=== PATIENT | female | born 1995 | race Hispanic/Latino ===

== ENCOUNTER 2020-02-06 21:10 | Inpatient (IN) | payer OTHER ==
--- OUTSIDE RECORDS SUMMARY | 2020-02-06 21:11 | XMS REPORT ---
:1995 Author Organization [facility] t Address [address] [place] [address] Care Team Providers Name Role Phone Unavailable Unavailable Unavailable Problems This patient has no known problems. Allergies, Adverse Reactions, Alerts This patient has no known allergies or adverse reactions. Medications This patient has no known medications.
[2020-02-06] MEDS ORDERED: FAMOTIDINE 20 MG/2 ML VIAL IV ONE (21:57)
[2020-02-06] MEDS ORDERED: MORPHINE 4 MG/ML SYR ONE (21:57)
[2020-02-06] MEDS ORDERED: ONDANSETRON 4 MG/2 ML VIAL ONE (21:57)
[2020-02-06] MEDS ORDERED: NA CHLORIDE 0.9% 1,000 ML ONE (21:57)
[2020-02-06] MEDS ORDERED: METOCLOPRAMIDE 10 MG/2mL INJ ONE (22:49)
[2020-02-06 23:54] LABS: Absolute Lymphocytes (CBC) 1.2 K/uL (0.7-4.9); Basophils % 0.5 % (0-1.3); Hematocrit 37.6 % (36.0-45.0); Lymphocytes % 9.3 % (15.3-44.8); MPV 9.4 fL (7.6-11.3); RBC Red Blood Cell Count 4.35 M/uL (3.86-4.86)
[2020-02-07 00:44] LABS: ALT/SGPT 29 U/L (12-78); AST/SGOT 19 U/L (15-37); Albumin 3.9 g/dL (3.4-5.0); Alkaline Phosphatase 97 U/L (45-117); BUN Blood Urea Nitrogen 12 mg/dL (7-18); Bicarbonate 26 mmol/L (21-32); Bilirubin Direct < 0.1 mg/dL (0-0.2); Bilirubin Total 0.3 mg/dL (0.2-1.0); Glucose Level 101 mg/dL (74-106); Lipase 84 U/L (73-393); Potassium 3.7 mmol/L (3.5-5.1); Protein, Total 7.8 g/dL (6.4-8.2); Sodium Level 140 mmol/L (136-145)
[2020-02-07 01:21] LABS: Urine Blood NEGATIVE (NEG); Urine Glucose NEGATIVE (NEG); Urine Protein 1+ (NEG); Urine pH 8.5 (5.0-7.0)
[2020-02-07 01:24] LABS: Urine Amorphous Sediment 1+ /HPF (NONE SEEN); Urine Bacteria 20-50 /HPF (<20); Urine Culture Reflex Order REFLEXED; Urine Mucus 2+ /HPF (NONE SEEN); Urine RBC <5 /HPF (NONE SEEN)
--- NOTE | 2020-02-07 04:08 | EDPHYS ---
Physician Documentation [facility] Name: Hollie Aiken Age: 24 yrs Sex: Female : 1995 Arrival Date: 02/06/2020 Time: 21:13 Bed 23 Private MD: ED Physician Dre Pinto HPI: 02/05 21:51 This 24 yrs old Female presents to ER via Ambulatory with complaints of mh7 Abdominal Pain, Vomiting. 21:51 The patient presents to the emergency department with nausea, that is moderate, mh7 vomiting, that is intermittent, 3 times since yesterday, described as clear fluid, diarrhea, abdominal pain, of the epigastric area and right upper quadrant, described as achy, constant, sharp, and radiates to the back. Onset: The symptoms/episode began/occurred yesterday. Possible causes: unknown. The symptoms are aggravated by food , The symptoms are alleviated by nothing. Associated signs and symptoms: Pertinent positives: abdominal pain, nausea, vomiting, Pertinent negatives: anorexia, diarrhea, dysuria, fever, GI bleeding, hematuria. Severity of symptoms: At their worst the symptoms were moderate today, in the emergency department the symptoms are unchanged. The patient has not experienced similar symptoms in the past. Historical: - Allergies: 21:21 No Known Allergies; ll1 - PSHx: 21:21 ; ll1 - Social history:: Smoking status: Patient denies any tobacco usage or history of. Patient/guardian denies using alcohol, street drugs, tobacco products. ROS: 21:55 Constitutional: Negative for body aches, chills, fatigue, fever, malaise, poor PO mh7 intake, weight loss. 21:55 Eyes: Negative for acute changes. 21:55 ENT: Negative for ear pain, nasal discharge, rhinorrhea, sinus congestion, sinus pain, sore throat, difficulty swallowing. 21:55 Neck: Negative for stiffness, swelling, swollen nodes, tenderness, acute changes. 21:55 Cardiovascular: Negative for chest pain, edema, orthopnea, palpitations, paroxysmal nocturnal dyspnea, acute changes. 21:55 Respiratory: Negative for cough, dyspnea on exertion, hemoptysis, orthopnea, pleurisy, shortness of breath, sputum production, wheezing, acute changes. 21:55 Abdomen/GI: Positive for abdominal pain, nausea and vomiting, Negative for abdominal distension, anorexia, dysphagia, hematemesis, black/tarry stool, rectal pain, rectal bleeding, bowel incontinence. 21:55 Back: Positive for radiated pain, Negative for injury or acute deformity, decreased range of motion. 21:55 : Negative for injury or acute deformity, urinary symptoms, urinary frequency, hematuria, pelvic pain, burning with urination, vaginal discharge, vaginal itching, menstrual abnormality, missed period, acute changes. 21:55 MS/extremity: Negative for acute changes, injury or acute deformity, abrasion, contusion, decreased range of motion, ecchymosis, erythema, pain, paresthesias, swelling, tenderness. 21:55 Skin: Negative for abrasions, abscesses, avulsion, burn, cellulitis, diaphoresis, ecchymosis, erythema, hematoma, jaundice, lesions, swelling. 21:55 Neuro: Negative for altered mental status, dizziness, gait disturbance, headache, hearing loss, loss of consciousness, numbness, syncope, tingling, visual changes, weakness. 21:55 Psych: Negative for anxiety, depression, drug dependence, alcohol dependence, auditory hallucinations, visual hallucinations, homicidal ideation, suicide gesture, suicidal ideation, acute changes. 21:55 Allergy/Immunology: Negative for allergies, hayfever, hives, joint pain, pruritus, rash, acute changes. 21:55 Endocrine: Negative for goiter, cold intolerance, heat intolerance, polydipsia, polyphagia, polyuria, weight gain, weight loss, acute changes. 21:55 Hematologic/Lymphatic: Negative for anemia, abnormal bleeding, swollen nodes, petechiae, ecchymosis, joint pain, tender nodes, acute changes. 21:55 All other systems are negative. 02/06 07:01 Constitutional: Negative for fever, chills, and weight loss, Cardiovascular: Negative mh7 for chest pain, palpitations, and edema, Respiratory: Negative for shortness of breath, cough, wheezing, and pleuritic chest pain. Exam: 02/05 21:55 Constitutional: The patient appears in no acute distress, alert, awake, mh7 non-diaphoretic, non-toxic, well developed, well hydrated, well groomed, well nourished, uncomfortable. Head/face: Exam is negative for obvious evidence of injury or deformity, abrasion(s), contusion, ecchymosis, erythema, swelling, tenderness. Eyes: Periorbital structures: appear normal, Pupils: equal, round, and reactive to light and accomodation, Extraocular movements: intact throughout, Conjunctiva: normal, Sclera: no appreciated abnormality. ENT: Mouth: is normal, no gum abnomalities, no lip abnormalities, no mucosal abnormalities, no tongue abnormalities. Neck: External neck: is normal, C-spine: appears grossly normal, Thyroid: appears normal, Trachea: is midline with no obvious abnormalities, ROM/movement: is normal, Lymph nodes: no appreciated lymphadenopathy. Chest/axilla: Inspection: normal, no cellulitis, no deformity, no ecchymosis, no rash, Palpation: is normal, no crepitus, no tenderness, Axilla: are normal, Lymph nodes: lymphadenopathy is not appreciated. Cardiovascular: Rate: normal, Rhythm: regular, Pulses: no pulse deficits are appreciated, Heart sounds: normal, normal S1and S2, Edema: is not appreciated, JVD: is not appreciated. Respiratory: the patient does not display signs of respiratory distress, Respirations: normal, no prolonged exhalations, no retractions, no shallow respirations, no splinting, no tachypnea, Breath sounds: are clear throughout, no bronchial sounds, no decreased breath sounds, no rales, rhonchi, no stridor, no wheezing, Respiratory rate: Normal Abdomen/GI: Inspection: abdomen appears normal, Bowel sounds: normal, in all quadrants, Palpation: soft, in all quadrants, moderate abdominal tenderness, in the epigastric area and right upper quadrant, mass, is not appreciated, rebound tenderness, is not appreciated, voluntary guarding, is not appreciated, involuntary guarding, is not appreciated, no appreciated organomegaly, Rectal exam: the exam is deferred, because of patient request, Indicators: McBurney's point is not tender, Almendarez's sign is negative, Rovsing's sign is negative, Obturator sign is negative, Psoas sign is negative, Liver: no appreciated palpable abnormalities, Hernia: not appreciated. Back: Exam negative for CVA tenderness, decreased ROM, deformity, ecchymosis injury, muscle spasm, vertebral tenderness, pain, that is mild, ROM is normal, normal spinal alignment noted, no deformity, CVA tenderness, is absent, muscle spasm, is not present. : Exam negative for dysuria, CVA tenderness, bladder tenderness, bladder distension. Musculoskeletal/extremity: Exam is negative for abrasion, bony tenderness, calf tenderness, decreased range of motion, deformity, ecchymosis, edema, erythema, injury, laceration, pain. Skin: Exam negative for abrasion, abscess, obvious bony injury, cellulitis, diaphoresis, ecchymosis, erythema any evidence of obvious injury. Neuro: Orientation: is normal, Mentation: is normal, Memory: is normal, Cranial nerves: grossly normal, Cerebellar function: is grossly normal, Motor: is normal, Sensation: is normal, Gait: is steady, at a normal pace, without difficulty. 02/06 07:01 Constitutional: This is a well developed, well nourished patient who is awake, alert, mh7 and in no acute distress. Cardiovascular: Regular rate and rhythm with a normal S1 and S2. No gallops, murmurs, or rubs. Normal PMI, no JVD. No pulse deficits. Respiratory: Lungs have equal breath sounds bilaterally, clear to auscultation and percussion. No rales, rhonchi or wheezes noted. No increased work of breathing, no retractions or nasal flaring. Vital Signs: 02/05 21:19 BP 137 / 92; Pulse 65; Resp 19; Temp 98.5; Pulse Ox 100% ; Pain 8/10; ll1 22:34 BP 135 / 82; Pulse 96; Resp 16; Pulse Ox 99% on R/A; jb4 23:30 BP 122 / 76; Pulse 75; Resp 18; Pulse Ox 100% on R/A; mw2 02/06 00:43 BP 133 / 74; Pulse 66; Resp 16; Pulse Ox 100% on R/A; mw2 01:00 BP 124 / 76; Pulse 69; Resp 16; Pulse Ox 97% on R/A; mw2 01:15 BP 124 / 72; Pulse 79; Resp 18; Pulse Ox 97% on R/A; mw2 04:20 BP 117 / 66; Pulse 74; Resp 16; Temp 97.2(TE); Pulse Ox 100% on R/A; Pain 0/10; jb4 MDM: 02/05 21:19 Patient medically screened. [facility] 02/06 05:32 Differential diagnosis: Nonspecific abd pain, gastritis, cholecystitis, pancreatitis. [facility] Data reviewed: vital signs, nurses notes, lab test result(s), amylase and lipase, CBC, hepatic panel. Counseling: I had a detailed discussion with the patient and/or guardian regarding: the historical points, exam findings, and any diagnostic results supporting the discharge/admit diagnosis, lab results, radiology results, the need for further work-up and treatment in the hospital. Admission orders: after a detailed discussion of the patient's condition and case, the admit orders are written by me. ED course: Feels better, NAD, VSS. Intermittent abdominal pain but nausea or vomiting. Discussed test results and findings with the patient and need for admission. Discussed with and admitted to Dr. Byers for further care.. 02/05 21:29 Order name: Creatinine for Radiology; Complete Time: 22:44 [facility] 02/05 21:29 Order name: Test, Serum; Complete Time: 22:44 [facility] 02/05 21:29 Order name: Urine Microscopic Only; Complete Time: 03:48 [facility] 02/05 23:10 Order name: Basic Metabolic Panel; Complete Time: 00:45 [facility] 02/05 23:10 Order name: CBC with Diff; Complete Time: 00:45 [facility] 02/05 23:10 Order name: Hepatic Function; Complete Time: 00:45 [facility] 02/05 21:31 Order name: US Abdomen Limited [facility] 02/05 22:55 Order name: CT Abd/Pelvis - IV Contrast Only [facility] 02/05 23:10 Order name: Lipase; Complete Time: 00:45 [facility] 02/06 00:29 Order name: Urine Dipstick--Ancillary (enter results); Complete Time: 03:48 [facility] 02/06 00:29 Order name: Urine --Ancillary (enter results); Complete Time: 03:48 [facility] 02/06 01:26 Order name: Urine Culture [facility] 02/05 21:29 Order name: Labs collected and sent; Complete Time: 22:08 [facility] 02/05 21:29 Order name: Urine Dipstick-Ancillary (obtain specimen); Complete Time: 00:34 [facility] 02/05 23:10 Order name: IV Saline Lock; Complete Time: 00:34 7 Administered Medications: 02/05 22:01 Drug: NS 0.9% 1000 ml Route: IV; Rate: 1 bolus; Site: left antecubital; tl2 23:00 Follow up: Response: No adverse reaction; IV Status: Completed infusion; IV Intake: jb4 1000ml 22:01 Drug: morphine 4 mg Route: IVP; Site: left antecubital; tl2 22:30 Follow up: Response: No adverse reaction; Pain is decreased; RASS: Alert and Calm (0) jb4 22:08 Drug: Zofran (Ondansetron) 4 mg Route: IVP; Site: left antecubital; tl2 22:50 Follow up: Response: No adverse reaction 4 22:08 Drug: Pepcid 20 mg Route: IVP; Site: left antecubital; tl2 22:50 Follow up: Response: No adverse reaction 4 22:45 Drug: Reglan 10 mg Route: IVP; Site: left antecubital; jb4 23:15 Follow up: Response: No adverse reaction; Nausea is decreased [facility] 02/06 05:30 Drug: Zosyn 3.375 grams Route: IVPB; Infused Over: 60 mins; Site: left antecubital; 4 06:30 Follow up: Response: No adverse reaction; IV Status: Completed infusion; IV Intake: jb4 100ml Disposition: 07:01 Co-signature as Attending Physician, Dre Pinto MD. [facility] Disposition: 02/07/20 05:32 Hospitalization ordered by Jorje Byers for Inpatient Admission. Preliminary diagnosis is Acute cholecystitis. - Bed requested for Telemetry/MedSurg (Inpatient). - Status is Inpatient Admission. eb - Condition is Stable. - Problem is new. - Symptoms have improved. Signatures: Dispatcher [employer] EDMA Milly Jon RN RN Tika Tomas RN RN tl2 Robbie Valentino RN RN jb4 Carley Raza Lynsay, RN RN 1 Dre Pinto MD MD 7 Corrections: (The following items were deleted from the chart) 05:16 04:08 02/07/2020 04:08 Patients has left against medical advice. Impression: Upper mh7 abdominal pain, unspecified; Cholelithiasis; Cholecystitis, unspecified - possible. Patient states they are going to Home. Condition is Stable. Follow up: Jorje Byers; When: Tomorrow; Reason: Further diagnostic work-up, Re-evaluation by your physician. Problem is new. Symptoms have improved. [facility] 06:03 05:32 Hospitalization Ordered by Jorje Byers MD for Inpatient Admission. Preliminary mw diagnosis is Acute cholecystitis. Bed requested for Telemetry/MedSurg (Inpatient). Status is Inpatient Admission. Condition is Stable. Problem is new. Symptoms have improved. [facility] 15:28 06:03 02/07/2020 05:32 Hospitalization Ordered by Jorje Byers MD for Inpatient eb Admission. Preliminary diagnosis is Acute cholecystitis. Bed requested for [facility] ER HOLD. Status is Inpatient Admission. Condition is Stable. Problem is new. Symptoms have improved. 18:14 15:28 02/07/2020 05:32 Hospitalization Ordered by Jorje Byers MD for Inpatient eb Admission. Preliminary diagnosis is Acute cholecystitis. Bed requested for Telemetry/MedSurg (Inpatient). Status is Inpatient Admission. Condition is Stable. Problem is new. Symptoms have improved. eb
--- NOTE | 2020-02-07 04:08 | ER ---
Nurse's Notes [facility] Name: Hollie Aiken Age: 24 yrs Sex: Female : 1995 Arrival Date: 02/06/2020 Time: 21:13 Bed 23 Private MD: Diagnosis: Acute cholecystitis Presentation: 02/05 21:19 Chief complaint: Patient states: RUQ abdominal pain that radiates through to the back ll1 for 2 days. + N/V. Coronavirus screen: Proceed with normal triage. Patient reports a cough. Patient denies shortness of breath or difficulty breathing. Patient denies measured and/or subjective temperature greater than 100.4F prior to today's visit. Patient denies travel on a cruise ship or to a country the [facility] currently lists as an affected area. Patient denies contact with known and/or suspected case of COVID-19. cough for 6 months. Ebola Screen: Patient denies travel to an Ebola-affected area in the 21 days before illness onset. Initial Sepsis Screen: Does the patient meet any 2 criteria? No. Patient's initial sepsis screen is negative. Does the patient have a suspected source of infection? No. Patient's initial sepsis screen is negative. Risk Assessment: Do you want to hurt yourself or someone else? Patient reports no desire to harm self or others. Onset of symptoms was February 05, 2020. 21:19 Method Of Arrival: Ambulatory ll1 21:19 Acuity: RAMAKRISHNA 3 ll1 Historical: - Allergies: 21:21 No Known Allergies; ll1 - PSHx: 21:21 ; ll1 - Social history:: Smoking status: Patient denies any tobacco usage or history of. Patient/guardian denies using alcohol, street drugs, tobacco products. Assessment: 21:30 General: Appears in no apparent distress. uncomfortable, Behavior is calm, cooperative, jb4 appropriate for age. Pain: Complains of pain in right upper quadrant Pain radiates to right mid back and chest Pain currently is 8 out of 10 on a pain scale. 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 Neuro: Level of Consciousness is awake, alert, obeys commands, Oriented to person, place, time, situation. Cardiovascular: Patient's skin is warm and dry. Respiratory: Airway is patent Respiratory effort is even, unlabored, Respiratory pattern is regular, symmetrical. GI: Abdomen is non-distended, obese, Bowel sounds present X 4 quads. Abd is soft X 4 quads Abd is non tender in left upper quadrant and left lower quadrant Abdomen is tender to palpation in right upper quadrant and right lower quadrant Reports nausea, vomiting. : No signs and/or symptoms were reported regarding the genitourinary system. EENT: No signs and/or symptoms were reported regarding the EENT system. Derm: Skin is intact, Skin is pink, warm \T\ dry. Musculoskeletal: Circulation, motion, and sensation intact. Range of motion: intact in all extremities. 22:40 Reassessment: Patient appears in no apparent distress at this time. Patient and/or jb4 family updated on plan of care and expected duration. Pain level reassessed. Patient is alert, oriented x 3, equal unlabored respirations, skin warm/dry/pink. PT reports vomiting following a sharp sudden pain to the right upper abdomen. Reports pain is no longer present but is till nauseous. Provider notified, see MAR for orders. 02/06 00:00 Reassessment: Patient appears in no apparent distress at this time. Patient and/or jb4 family updated on plan of care and expected duration. Pain level reassessed. Patient is alert, oriented x 3, equal unlabored respirations, skin warm/dry/pink. Patient states feeling better. 01:00 Reassessment: Patient appears in no apparent distress at this time. Patient and/or jb4 family updated on plan of care and expected duration. Pain level reassessed. Patient is alert, oriented x 3, equal unlabored respirations, skin warm/dry/pink. Patient states feeling better. 02:00 Reassessment: Patient appears in no apparent distress at this time. Patient and/or jb4 family updated on plan of care and expected duration. Pain level reassessed. Patient is alert, oriented x 3, equal unlabored respirations, skin warm/dry/pink. Patient states feeling better. 03:00 Reassessment: Patient appears in no apparent distress at this time. Patient and/or jb4 family updated on plan of care and expected duration. Pain level reassessed. Patient is alert, oriented x 3, equal unlabored respirations, skin warm/dry/pink. Denies nausea. Patient denies pain at this time. Patient states feeling better. 04:00 Reassessment: Patient appears in no apparent distress at this time. No changes from jb4 previously documented assessment. Patient and/or family updated on plan of care and expected duration. Pain level reassessed. Patient is alert, oriented x 3, equal unlabored respirations, skin warm/dry/pink. Vital Signs: 02/05 21:19 BP 137 / 92; Pulse 65; Resp 19; Temp 98.5; Pulse Ox 100% ; Pain 8/10; ll1 22:34 BP 135 / 82; Pulse 96; Resp 16; Pulse Ox 99% on R/A; jb4 23:30 BP 122 / 76; Pulse 75; Resp 18; Pulse Ox 100% on R/A; mw2 02/06 00:43 BP 133 / 74; Pulse 66; Resp 16; Pulse Ox 100% on R/A; mw2 01:00 BP 124 / 76; Pulse 69; Resp 16; Pulse Ox 97% on R/A; mw2 01:15 BP 124 / 72; Pulse 79; Resp 18; Pulse Ox 97% on R/A; mw2 04:20 BP 117 / 66; Pulse 74; Resp 16; Temp 97.2(TE); Pulse Ox 100% on R/A; Pain 0/10; jb4 ED Course: 02/05 21:13 Patient arrived in ED. cl3 21:15 Dre Pinto MD is Attending Physician. mh7 21:21 Triage completed. ll1 21:21 Arm band placed on Patient placed in an exam room, on a stretcher. ll1 22:10 Ultrasound completed. Patient tolerated well. sg3 22:11 US Abdomen Limited In Process Unspecified. EDMS 22:16 Robbie Valentino, RN is Primary Nurse. jb4 02/06 00:38 Radiology exam delayed due to lab results not completed at this time. (BUN/Creatinine) kw1 test not completed at this time. 01:52 CT Abd/Pelvis - IV Contrast Only In Process Unspecified. EDMS 04:04 Jorje Byers MD is Referral Physician. mh7 05:31 Jorje Byers MD is Hospitalizing Provider. mh7 Administered Medications: 02/05 22:01 Drug: NS 0.9% 1000 ml Route: IV; Rate: 1 bolus; Site: left antecubital; tl2 23:00 Follow up: Response: No adverse reaction; IV Status: Completed infusion; IV Intake: jb4 1000ml 22:01 Drug: morphine 4 mg Route: IVP; Site: left antecubital; tl2 22:30 Follow up: Response: No adverse reaction; Pain is decreased; RASS: Alert and Calm (0) jb4 22:08 Drug: Zofran (Ondansetron) 4 mg Route: IVP; Site: left antecubital; tl2 22:50 Follow up: Response: No adverse reaction jb4 22:08 Drug: Pepcid 20 mg Route: IVP; Site: left antecubital; tl2 22:50 Follow up: Response: No adverse reaction jb4 22:45 Drug: Reglan 10 mg Route: IVP; Site: left antecubital; jb4 23:15 Follow up: Response: No adverse reaction; Nausea is decreased [facility] 02/06 05:30 Drug: Zosyn 3.375 grams Route: IVPB; Infused Over: 60 mins; Site: left antecubital; 4 06:30 Follow up: Response: No adverse reaction; IV Status: Completed infusion; IV Intake: jb4 100ml Intake: 02/05 23:00 IV: 1000ml; Total: 1000ml. 4 02/06 06:30 IV: 100ml; Total: 1100ml. [facility] Outcome: 05:32 Decision to Hospitalize by Provider. [facility] 18:14 Patient left the ED. eb Signatures: Dispatcher [employer] EDMS Tika Tomas RN RN tl2 Robbie Valentino RN RN jb4 Sharon Medrano [facility] Tena Calles 3 Kashif Heaton 2 Carley Raza Martine Huston3 Gavino Huston RN RN ll1 Dre Pinto MD MD 7 Corrections: (The following items were deleted from the chart) 07:45 07:45 IV Status: Completed infusion; IV Intake: 100ml jb4 jb4
[2020-02-07] MEDS ORDERED: PIPER/TAZO/NS 3.375gm 3.375 GM/100 ML BAG ONE (05:22)
[2020-02-07 07:27] VITALS: BMI 38.5
--- NOTE | 2020-02-07 13:05 | HP ---
Date of Admission: 02/07/2020 Brief History Of Present Illness: Patient is a 24-year-old female who presents with approxi mately 1-week history of epigastric and right upper quadrant abdominal pain. She cannot recall her m eal specifically, but notes that 2-1/2 days ago she developed sharp stabbing epigastric and right upp er quadrant abdominal pain which got progressively worse over the course of the day and so she came t o the emergency room today with the above-stated complaints. She states that she has had some low-gr sade nausea and no vomiting. The symptoms were not improved by anything other than she got a dose of pain medication here at the hospital after being in the ER and her pain has essentially resolved to 0 at this point. She has no longer feeling pain, tenderness, swelling, or any other symptomatology wi th respect to her epigastric right upper quadrant or any abdominal portions. She denies any sick con tacts, recent travel. No food exposure. She has no COVID exposures by her report. Past Medical History: Significant for asthma as a child. Past Surgical History: She had 2 C-sections, last 1 was approximately 1 year ago. Allergies: NO KNOWN DRUG ALLERGIES. Medications: None. Social History: She denies smoking, alcohol, recreational drug use. Physical Examination: Vital Signs: At time of my examination, her BMI is 38.6. She is 4 feet 11 inches, 191 pounds. Her blood pressure 113/56, respiratory rate 18, temperature 97.3. Pain level was 0. General: She is awake, alert, oriented. Psychiatric: She is appropriate conversive. HEENT: She is normocephalic. Sclerae icteric. Mucous is moist. Oropharynx clear. Neck: Supple. No JVD. Chest: Normal expansion and excursion. Cardiovascular: Regular rate and rhythm. Pulmonary: Clear to auscultation bilaterally. Abdomen: Soft, nontender, nondistended. No rebound. No guarding. No focal peritonitis. Almendarez si gn negative. No tenderness at McBurney point. Her abdomen is obese generally and well-healed surgic al scars evident from her . Extremities: No clubbing, cyanosis, edema. Skin: Warm and dry. Laboratory Data: Reveals a white blood count 12.4, hemoglobin is 12.2, hematocrit of 37.6, platelet count is 323, neutrophils are 84%. Her sodium is 140, potassium 3.7, chloride 107, carbon dioxide 26 , BUN 12, creatinine 0.6, glucose is 101, calcium is 8.3, total bilirubinate 0.3, direct component is less than 0.1, AST 19, ALT 29, alkaline phosphatase 97. Her lipase is 84. test was negat erin. She had a UA which showed a 20-50 bacteria and 1+ protein. She had imaging performed which inc luded an abdomen and pelvis CT as well as an abdominal ultrasound. I personally reviewed these image s and findings consistent with cholecystitis with significant pericholecystic fluid and some edema wi th a gallstone near the neck of the gallbladder. The official dictation, however, is read on the CT as thickened appearance of the gallbladder wall could be seen with acute cholecystitis versus nonspec ific edema. There are few tiny stones in the dependent gallbladder. She additionally had the ultras ound which was officially read as gallbladder distended gallbladder wall thickening. Pericholecystic fluid is noted. Gallstone lodged in the neck of the gallbladder. Sludge present within the gallbla dder. Cholelithiasis with findings suggestive of acute cholecystitis were found. Assessment And Plan: This is a 24-year-old female who comes in with signs of acute calculous cholecy stitis. 1.IV fluid hydration. 2.Antibiotic coverage with Zosyn 3.375 IV q.6. 3.I have explained risks, benefits, and alternatives of laparoscopic, possible open cholecystectomy including but not limited to bleeding, infection, damage to surrounding tissue, need further operatio n procedure, injury to bile ducts, intestines. The patient would like to try a course of p.o. and he ve her gallbladder taken out on elective basis during this Coronavirus disease situation as such I wi ll start clear liquid diet, advance her and if she is able to tolerate diet, we will schedule her for an outpatient cholecystectomy. However, if she is unable to tolerate diet or has worsening of her s ymptoms whatsoever, we will likely proceed with inpatient cholecystectomy prior to discharge. I have explained the risks, benefits, and alternatives of this plan. The patient agrees with this plan. LEO Voice ID: [id number]
[2020-02-07] MEDS ORDERED: ONDANSETRON 4 MG/2 ML VIAL IV PRN (15:43)
[2020-02-07] MEDS ORDERED: MORPHINE 4 MG/ML SYR IV PRN (15:43)
[2020-02-07] MEDS ORDERED: D5 0.45 NS 1,000 ML IV SCH (15:43)
[2020-02-07] MEDS: D5.45NS W/KCL 20MEQ 1,000 ML IV SCH (16:08)
[2020-02-07] MEDS: PIPER/TAZO/NS 3.375gm 3.375 GM/100 ML BAG IVPB SCH (18:09)
--- NOTE | 2020-02-07 21:22 | RAD REPORT ---
EXAM DESCRIPTION: US Abdomen Limited, Gallbladder CLINICAL HISTORY: The patient is 24 years old and is Female; ruq PAIN;Pain;Nausea / vomiting TECHNIQUE: Real-time ultrasound of the right upper quadrant with image documentation. COMPARISON: CT of the abdomen and pelvis February 07, 2020. FINDINGS: GALLBLADDER: The gallbladder is distended. Gallbladder wall thickening and pericholecyst ic fluid is noted. A gallstone is lodged within the neck of the gallbladder. Sludge is present with in the gallbladder. COMMON BILE DUCT: Unremarkable as visualized. No stones. No dilation. PANCREAS: Unremarkable as visualized. IMPRESSION: Cholelithiasis with findings suggestive of acute cholecystitis. Electronically signed by: Doris Meyers MD 02/07/2020 4:57 AM CDT Due to temporary technical issues with the PACS/Fluency reporting system, reports are being signed by the in house radiologist as a courtesy to ensure prompt reporting. The interpreting radiologist is f ully responsible for the content of the report.
--- NOTE | 2020-02-07 21:37 | RAD REPORT ---
EXAM DESCRIPTION: CT ABDOMEN PELVIS WITH IV CONTRAST COMPARISON: None CLINICAL HISTORY: Abdominal pain TECHNIQUE: Multiple helical axial images were obtained through the abdomen and pelvis using intraven ous contrast. Coronal and sagittal reformatted images were obtained. All CT scans at this facility use dose modulation, iterative reconstruction, and/or weight-based dosi ng when appropriate to reduce radiation dose to as low as reasonably achievable. FINDINGS: Lung bases: Small hiatal hernia is present. Liver: Homogenous attenuation is noted. Gallbladder/biliary: Gallbladder wall appears thickened. A few tiny calcific densities in the gallbla dder fundus are suggestive of stones. No significant biliary ductal dilatation. Pancreas: Unremarkable. No evidence of ductal enlargement. Spleen: Appears unremarkable. No splenomegaly. Adrenals: Unremarkable. Kidneys and ureters: No evidence of hydronephrosis. Normal enhancement. Bladder: Unremarkable. Pelvic organs: Unremarkable. Bowel: No evidence of bowel obstruction. No bowel wall thickening. Appendix appears unremarkable. Vasculature: Unremarkable. Peritoneum: No free air. There is trace nonspecific free fluid in the pelvis. Lymph nodes: Unremarkable. Soft tissues: Unremarkable. Bones: Unremarkable. IMPRESSION: Thickened appearance of the gallbladder wall which can be seen with acute cholecystitis versus nonspecific edema. There are a few tiny stones in the dependent gallbladder. Follow-up ultraso und can be performed as appropriate. Electronically signed by: Jamil Jimenez MD 02/07/2020 2:26 AM CDT Due to temporary technical issues with the PACS/Fluency reporting system, reports are being signed by the in house radiologist as a courtesy to ensure prompt reporting. The interpreting radiologist is f ully responsible for the content of the report.
[2020-02-08] MEDS: PIPER/TAZO/NS 3.375gm 3.375 GM/100 ML BAG IVPB SCH ×2 (00:31→09:12)
[2020-02-08] MEDS: D5.45NS W/KCL 20MEQ 1,000 ML IV SCH ×2 (00:31→08:00)
[2020-02-08 05:36] LABS: Absolute Lymphocytes (CBC) 1.6 K/uL (0.7-4.9); Basophils % 1.3 % (0-1.3); Hematocrit 37.6 % (36.0-45.0); Lymphocytes % 27.7 % (15.3-44.8); MPV 9.1 fL (7.6-11.3); RBC Red Blood Cell Count 4.31 M/uL (3.86-4.86)
[2020-02-08 05:53] LABS: ALT/SGPT 74 U/L (12-78); AST/SGOT 26 U/L (15-37); Albumin 3.2 g/dL (3.4-5.0); Alkaline Phosphatase 95 U/L (45-117); BUN Blood Urea Nitrogen 5 mg/dL (7-18); Bicarbonate 25 mmol/L (21-32); Bilirubin Direct 0.2 mg/dL (0-0.2); Bilirubin Total 0.5 mg/dL (0.2-1.0); Glucose Level 106 mg/dL (74-106); Lipase 70 U/L (73-393); Potassium 3.8 mmol/L (3.5-5.1); Protein, Total 7.1 g/dL (6.4-8.2); Sodium Level 140 mmol/L (136-145)
[2020-02-08] MEDS ORDERED: KCL 20 MEQ/100 mL IVPB 20 MEQ/100 ML BAG IV SCH (09:00)
[2020-02-08 12:02] VITALS: O2SAT 97
[2020-02-08 12:54] VITALS: BP 120/68; TEMP 97.3
--- NOTE | 2020-02-11 13:07 | P.DS ---
Admission Date: 02/07/20 Discharge Date: 02/11/20 Disposition: ROUTINE DISCHARGE Discharge Condition: GOOD Brief History of Present Illness: 24 year old woman who presents with abdominal pain. Hospital Course: Patient had cholecystitis, but significant improvement of pain and symptoms, wanted a trial of PO, did well, advanced to gallbladder diet, no pain, no nausea, no tenderness, wanted to go home and schedule outpatient cholecystecomy Vital Signs/Physical Exam: Temp Pulse Resp BP Pulse Ox 97.3 F 72 20 120/68 98 02/08/20 12:00 02/08/20 12:00 02/08/20 12:00 02/08/20 12:00 02/08/20 12:00 General: Alert, In no apparent distress, Cooperative HEENT: Atraumatic Respiratory: Clear to auscultation bilaterally Gastrointestinal: Normal bowel sounds, No tenderness, No masses, No rebound, No guarding Musculoskeletal: No clubbing, No swelling, No contractures, No erythema Neurological: Normal gait, Normal speech Laboratory Data at Discharge: WBC 5.8 K/uL (4.3-10.9) D 02/08/20 05:19 Hgb 12.3 g/dL (12.0-15.0) 02/08/20 05:19 Hct 37.6 % (36.0-45.0) 02/08/20 05:19 Plt Count 307 K/uL (152-406) 02/08/20 05:19 Sodium 140 mmol/L (136-145) 02/08/20 05:19 Potassium 3.8 mmol/L (3.5-5.1) 02/08/20 05:19 BUN 5 mg/dL (7-18) L 02/08/20 05:19 Creatinine 0.73 mg/dL (0.55-1.3) 02/08/20 05:19 Glucose 106 mg/dL (74-106) 02/08/20 05:19 Total Bilirubin 0.5 mg/dL (0.2-1.0) 02/08/20 05:19 AST 26 U/L (15-37) 02/08/20 05:19 ALT 74 U/L (12-78) 02/08/20 05:19 Alkaline Phosphatase 95 U/L (45-117) 02/08/20 05:19 Lipase 70 U/L (73-393) L 02/08/20 05:19 Home Medications: Amoxicillin/Potassium Clav [Augmentin 500-125 Tablet] 1 each PO Q12H #14 tablet 02/08/20 traMADol HCL [Ultram*] 1 tab PO Q4H PRN 02/08/20 New Medications: Amoxicillin/Potassium Clav [Augmentin 500-125 Tablet] 1 each PO Q12H #14 tablet Diet: [place] Activity: Ad albin Followup: Jorje Byers MD [ACTIVE - CAN ADMIT] - 1 Week (call to make an appointment. )
== END 2020-02-08 13:57 | disposition home or self-care (01) | DRG 446 ==
LOC: ER 21:10 → ERHOLD 02-07 05:48 → 2ND 02-07 15:35
PROVIDERS: ADMIT Surgery; ATTEND Surgery
DX: K81.0 Acute cholecystitis (principal)
CPT/HCPCS: 36415; 74177; 76705; 80048; 80053; 80076; 81003; 81015; 81025; 83690; 84703; 85025; 87086; 87088; 96361; 96365; 96375; 99283; J2405; J2543; J2765; J7030; Q9966

== ENCOUNTER 2020-02-08 19:52 | Inpatient (IN) | payer OTHER ==
[2020-02-08] MEDS: PIPER/TAZO/NS 3.375gm 3.375 GM/100 ML BAG IVPB SCH ×3 (06:00→22:00)
--- OUTSIDE RECORDS SUMMARY | 2020-02-08 19:57 | XMS REPORT ---
:1995 Author Organization [facility] t Address [address] [place] [address] Care Team Providers Name Role Phone Unavailable Unavailable Unavailable Problems This patient has no known problems. Allergies, Adverse Reactions, Alerts This patient has no known allergies or adverse reactions. Medications This patient has no known medications.
[2020-02-08 20:50] LABS: Absolute Lymphocytes (CBC) 1.9 K/uL (0.7-4.9); Lymphocytes % 17.1 % (15.3-44.8)
[2020-02-08 20:59] LABS: Bicarbonate 26 mmol/L (21-32); Glucose Level 87 mg/dL (74-106); Sodium Level 140 mmol/L (136-145)
[2020-02-08 21:00] LABS: ALT/SGPT 68 U/L (12-78); AST/SGOT 21 U/L (15-37); Albumin 3.8 g/dL (3.4-5.0); Alkaline Phosphatase 108 U/L (45-117); BUN Blood Urea Nitrogen 7 mg/dL (7-18); Bilirubin Direct 0.1 mg/dL (0-0.2); Bilirubin Total 0.4 mg/dL (0.2-1.0); Lipase 65 U/L (73-393); Protein, Total 8.2 g/dL (6.4-8.2)
--- NOTE | 2020-02-08 21:07 | RAD REPORT ---
EXAM DESCRIPTION: US - Abdomen Exam Limited - 02/08/2020 8:53 pm CLINICAL HISTORY: Abdominal pain. COMPARISON: February 07, 2020 FINDINGS: The gallbladder wall is mildly thickened measuring 4 millimeters. A gallstone is not visua lized on this examination. . The biliary tree is normal caliber. IMPRESSION: Mild gallbladder wall thickening may indicate cholecystitis and should be correlated cli nically Patient has known cholelithiasis. A stone was not visualized on this exam but could still be present perhaps within the gallbladder neck and obscured by overlying bowel
--- NOTE | 2020-02-08 21:23 | EDPHYS ---
Physician Documentation [facility] Name: Hollie Aiken Age: 24 yrs Sex: Female : 1995 Arrival Date: 02/08/2020 Time: 19:57 Bed 23 Private MD: ED Physician Haim Gaxiola HPI: 02/07 21:20 This 24 yrs old Female presents to ER via Ambulatory with complaints of kb Abdominal Pain. 21:20 The patient presents with abdominal pain in the right upper quadrant. Onset: The kb symptoms/episode began/occurred today. The symptoms do not radiate. Associated signs and symptoms: none. The symptoms are described as achy, constant. Modifying factors: The symptoms are alleviated by nothing, the symptoms are aggravated by nothing. Severity of pain: At its worst the pain was moderate in the emergency department the pain is unchanged. The patient has experienced a previous episode. The patient has been recently been admitted at [facility], was discharged earlier today. Pt reports she was recently admitted because of an infected gallbladder. States the surgeon said he wanted the swelling to go down before surgery so they were going to wait for 2 weeks then remove it. States she was discharged from here, went to [facility] to get food to follow the recommended diet and then the pain doubled her over. States she tried to wait it out but it never got better. 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 - Social history:: Smoking status: Patient denies any tobacco usage or history of. ROS: 21:19 Constitutional: Negative for fever, chills, and weight loss, Cardiovascular: Negative kb for chest pain, palpitations, and edema, Respiratory: Negative for shortness of breath, cough, wheezing, and pleuritic chest pain, Back: Negative for injury and pain, MS/Extremity: Negative for injury and deformity, Skin: Negative for injury, rash, and discoloration, Neuro: Negative for headache, weakness, numbness, tingling, and seizure. 21:19 Abdomen/GI: Positive for abdominal pain, Negative for nausea, vomiting, and diarrhea. Exam: 21:19 Constitutional: This is a well developed, well nourished patient who is awake, alert, kb and in no acute distress. Head/Face: Normocephalic, atraumatic. Chest/axilla: Normal chest wall appearance and motion. Nontender with no deformity. No lesions are appreciated. Cardiovascular: Regular rate and rhythm with a normal S1 and S2. No gallops, murmurs, or rubs. Normal PMI, no JVD. No pulse deficits. Respiratory: Lungs have equal breath sounds bilaterally, clear to auscultation and percussion. No rales, rhonchi or wheezes noted. No increased work of breathing, no retractions or nasal flaring. Back: No spinal tenderness. No costovertebral tenderness. Full range of motion. Skin: Warm, dry with normal turgor. Normal color with no rashes, no lesions, and no evidence of cellulitis. MS/ Extremity: Pulses equal, no cyanosis. Neurovascular intact. Full, normal range of motion. Neuro: Awake and alert, GCS 15, oriented to person, place, time, and situation. Cranial nerves II-XII grossly intact. Motor strength 5/5 in all extremities. Sensory grossly intact. Cerebellar exam normal. Normal gait. 21:19 Abdomen/GI: Inspection: abdomen appears normal, Bowel sounds: normal, in all quadrants, Palpation: soft, in all quadrants, moderate abdominal tenderness, in the right upper quadrant, Indicators: Almendarez's sign is positive. Vital Signs: 20:14 BP 121 / 72; Pulse 65; Resp 18 S; Temp 97.7(TE); Pulse Ox 100% on NC; Weight 86.18 kg ca1 (R); Height 4 ft. 11 in. (149.86 cm) (R); 21:52 BP 128 / 71; Pulse 60; Resp 16; Temp 98.3; Pulse Ox 100% ; Pain 6/10; ll1 20:14 Body Mass Index 38.37 (86.18 kg, 149.86 cm) ca1 MDM: 20:23 Patient medically screened. kb 20:32 Data reviewed: vital signs, nurses notes. Data interpreted: Pulse oximetry: on room air kb is 100 %. Interpretation: normal. 21:18 Counseling: I had a detailed discussion with the patient and/or guardian regarding: the kb historical points, exam findings, and any diagnostic results supporting the discharge/admit diagnosis, lab results, radiology results, the need for further work-up and treatment in the hospital. Physician consultation: Jorje Byers MD was contacted at 21:18, regarding admission, to the medical/surgical unit. and will see patient in inpatient room. 02/07 20:24 Order name: Basic Metabolic Panel; Complete Time: 21:04 kb 02/07 20:24 Order name: CBC with Diff; Complete Time: 20:52 kb 02/07 20:24 Order name: US Abdomen Limited; Complete Time: 21:11 kb 02/07 20:24 Order name: Hepatic Function; Complete Time: 21:04 kb 02/07 20:24 Order name: Lipase; Complete Time: 21:04 kb 02/07 20:24 Order name: IV Saline Lock; Complete Time: 20:35 kb 02/07 20:24 Order name: Labs collected and sent; Complete Time: 20:35 kb Administered Medications: 21:50 Drug: NS 0.9% 1000 ml Route: IV; Rate: 125 ml/hr; Site: left forearm; ll1 22:22 Follow up: Response: No adverse reaction; IV Status: Infusion continued ll1 21:51 Drug: Zosyn 3.375 grams Route: IVPB; Infused Over: 60 mins; Site: left forearm; ll1 22:22 Follow up: Response: No adverse reaction; RASS: Alert and Calm (0); IV Status: Infusion ll1 continued 21:51 Not Given (Patient Refused): morphine 4 mg IVP once; RASS on ADMIN: Combtv4, Very ll1 Agttd3, Agttd2, Rstlss1, AlertClm0, Drwsy-1, Lt Sdtn-2, Mod Sdtn-3, Dp Sdtn-4, UnArsble-5 21:51 Not Given (Patient Refused): Zofran (Ondansetron) 4 mg IVP once; over 2 minutes ll1 Disposition: 23:13 Co-signature as Attending Physician, Haim Gaxiola MD. rn Disposition: 02/08/20 21:22 Hospitalization ordered by Jorje Byers for Observation. Preliminary diagnosis is Acute cholecystitis. - Bed requested for Telemetry/MedSurg (observation). - Status is Observation. rn - Condition is Stable. - Problem is new. - Symptoms are unchanged. Signatures: Dispatcher [employer] EDMS Fior Oneal, MALTED MILK SUPERVISOR-C MALTED MILK SUPERVISOR-Ckb Haim Gaxiola MD MD rn Acob, Cheryl, RN RN ca1 Gavino Huston RN RN ll1 Corrections: (The following items were deleted from the chart) 21:22 21:22 Hospitalization Ordered by Jorje Byers MD for Observation. Preliminary diagnosis kb is Acute cholecystitis. Bed requested for Telemetry/MedSurg (observation). Status is Observation. Condition is Stable. Problem is new. Symptoms are resolved. kb 21:43 21:22 02/08/2020 21:22 Hospitalization Ordered by Jorje Byers MD for Observation. rn Preliminary diagnosis is Acute cholecystitis. Bed requested for Telemetry/MedSurg (observation). Status is Observation. Condition is Stable. Problem is new. Symptoms are unchanged. kb 22:32 21:43 02/08/2020 21:22 Hospitalization Ordered by Jorje Byers MD for Observation. rn Preliminary diagnosis is Acute cholecystitis. Bed requested for Telemetry/MedSurg (observation). Status is Observation. Condition is Stable. Problem is new. Symptoms are unchanged. rn
--- NOTE | 2020-02-08 21:23 | ER ---
Nurse's Notes [facility] Name: Hollie Aiken Age: 24 yrs Sex: Female : 1995 Arrival Date: 02/08/2020 Time: 19:57 Bed 23 Private MD: Diagnosis: Acute cholecystitis Presentation: 02/07 20:14 Chief complaint: Patient states: Was hospitalized here since Saturday for inflammation ca1 of the gall bladder. Discharged this morning. Scheduled for removal of the gall bladder 2 weeks from now. C/O RUQ pain radiating to the back, SOB with pain. Coronavirus screen: Proceed with normal triage. Patient denies a cough. Patient denies shortness of breath or difficulty breathing. Patient denies measured and/or subjective temperature greater than 100.4F prior to today's visit. Patient denies travel on a cruise ship or to a country the [facility] currently lists as an affected area. Patient denies contact with known and/or suspected case of COVID-19. Ebola Screen: Patient negative for fever greater than or equal to 101.5 degrees Fahrenheit, and additional compatible Ebola Virus Disease symptoms Patient denies exposure to infectious person. Patient denies travel to an Ebola-affected area in the 21 days before illness onset. No symptoms or risks identified at this time. Initial Sepsis Screen: Does the patient meet any 2 criteria? No. Patient's initial sepsis screen is negative. Does the patient have a suspected source of infection? No. Patient's initial sepsis screen is negative. Risk Assessment: Do you want to hurt yourself or someone else? Patient reports no desire to harm self or others. Onset of symptoms was February 08, 2020. 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 - Social history:: Smoking status: Patient denies any tobacco usage or history of. Screenin:00 Abuse screen: Denies threats or abuse. Nutritional screening: No deficits noted. ll1 Tuberculosis screening: No symptoms or risk factors identified. Fall Risk None identified. Total Dee Fall Scale indicates No Risk (0-24 pts). Assessment: 20:59 General: Appears in no apparent distress. Behavior is calm, cooperative. Pain: ll1 Complains of pain in ruq. Neuro: No deficits noted. Cardiovascular: No deficits noted. GI: Abdomen is flat, Bowel sounds present X 4 quads. Abd is soft Abdomen is tender to palpation in right upper quadrant Reports upper abdominal pain. : No deficits noted. 22:00 Reassessment: No changes from previously documented assessment. Patient and/or family ll1 updated on plan of care and expected duration. Pain level reassessed. Patient is alert, oriented x 3, equal unlabored respirations, skin warm/dry/pink. Vital Signs: 20:14 BP 121 / 72; Pulse 65; Resp 18 S; Temp 97.7(TE); Pulse Ox 100% on NC; Weight 86.18 kg ca1 (R); Height 4 ft. 11 in. (149.86 cm) (R); 21:52 BP 128 / 71; Pulse 60; Resp 16; Temp 98.3; Pulse Ox 100% ; Pain 6/10; ll1 20:14 Body Mass Index 38.37 (86.18 kg, 149.86 cm) ca1 ED Course: 19:57 Patient arrived in ED. bp1 20:16 Triage completed. ca1 20:16 Arm band placed on right wrist. ca1 20:23 Fior Oneal FNP-C is [facility]. kb 20:23 Haim Gaxiola MD is Attending Physician. kb 20:28 Gavino Huston, ANN is Primary Nurse. ll1 20:36 Inserted saline lock: 20 gauge in left antecubital area, using aseptic technique. Blood mt collected. 20:54 US Abdomen Limited In Process Unspecified. EDMS 21:00 Patient has correct armband on for positive identification. Placed in gown. Bed in low ll1 position. Call light in reach. Side rails up X 1. 21:22 Jorje Byers MD is Hospitalizing Provider. kb 22:21 No provider procedures requiring assistance completed. Patient admitted, IV remains in ll1 place. Administered Medications: 21:50 Drug: NS 0.9% 1000 ml Route: IV; Rate: 125 ml/hr; Site: left forearm; ll1 22:22 Follow up: Response: No adverse reaction; IV Status: Infusion continued 1 21:51 Drug: Zosyn 3.375 grams Route: IVPB; Infused Over: 60 mins; Site: left forearm; [facility] 22:22 Follow up: Response: No adverse reaction; RASS: Alert and Calm (0); IV Status: Infusion ll1 continued 21:51 Not Given (Patient Refused): morphine 4 mg IVP once; RASS on ADMIN: Combtv4, Very ll1 Agttd3, Agttd2, Rstlss1, AlertClm0, Drwsy-1, Lt Sdtn-2, Mod Sdtn-3, Dp Sdtn-4, UnArsble-5 21:51 Not Given (Patient Refused): Zofran (Ondansetron) 4 mg IVP once; over 2 minutes 1 Outcome: 21:22 Decision to Hospitalize by Provider. kb 22:21 Admitted to Med/surg accompanied by tech, via wheelchair, room 221, Report called to [facility] Shelly Quan 22:21 Condition: stable 22:21 Instructed on the need for admit, Demonstrated understanding of instructions. 22:32 Patient left the ED. rn Signatures: Dispatcher [employer] EDFior Townsend, ACCOUNT MAINTENANCE REPRESENTATIVE-C ACCOUNT MAINTENANCE REPRESENTATIVE-Ckb Haim Gaxiola MD MD rn Thompson, Moriah mt Acob, Cheryl, RN RN ca1 Lewis, Lynsay, RN RN 1 Kristine Lennon
[2020-02-08] MEDS ORDERED: ONDANSETRON 4 MG/2 ML VIAL ONE (21:35)
[2020-02-08] MEDS ORDERED: MORPHINE 4 MG/ML SYR ONE (21:35)
[2020-02-08] MEDS ORDERED: PIPER/TAZO/NS 3.375gm 3.375 GM/100 ML BAG ONE (21:36)
[2020-02-08] MEDS ORDERED: NA CHLORIDE 0.9% 1,000 ML ONE (21:36)
[2020-02-08] MEDS ORDERED: ACETAMINOPHEN 500 MG TAB PO PRN (22:35)
[2020-02-08] MEDS ORDERED: MORPHINE 4 MG/ML SYR IV PRN (22:35)
[2020-02-08] MEDS: NA CHLORIDE 0.9% 1,000 ML IV SCH (22:35)
[2020-02-08] MEDS ORDERED: ONDANSETRON 4 MG/2 ML VIAL IV PRN (22:35)
[2020-02-08 22:51] VITALS: BMI 38.2
[2020-02-09] MEDS ORDERED: PIPER/TAZO/NS 3.375gm 3.375 GM/100 ML BAG IVPB SCH (01:00)
[2020-02-09] MEDS ORDERED: PIPERACIL/TAZO 3.375 GM VIAL IV ONE (01:48)
[2020-02-09] MEDS ORDERED: NA CHLORIDE 0.9% 100 ML ONE (01:53)
[2020-02-09 04:18] LABS: Absolute Lymphocytes (CBC) 1.7 K/uL (0.7-4.9); Basophils % 0.7 % (0-1.3); Hematocrit 36.6 % (36.0-45.0); Lymphocytes % 19.3 % (15.3-44.8); MPV 9.1 fL (7.6-11.3); RBC Red Blood Cell Count 4.22 M/uL (3.86-4.86)
[2020-02-09 04:34] LABS: ALT/SGPT 54 U/L (12-78); AST/SGOT 12 U/L (15-37); Albumin 3.3 g/dL (3.4-5.0); Alkaline Phosphatase 90 U/L (45-117); BUN Blood Urea Nitrogen 8 mg/dL (7-18); Bicarbonate 25 mmol/L (21-32); Bilirubin Direct 0.1 mg/dL (0-0.2); Bilirubin Total 0.4 mg/dL (0.2-1.0); Glucose Level 86 mg/dL (74-106); Lipase 60 U/L (73-393); Potassium 3.5 mmol/L (3.5-5.1); Sodium Level 142 mmol/L (136-145)
[2020-02-09] MEDS: PIPER/TAZO/NS 3.375gm 3.375 GM/100 ML BAG IVPB SCH ×3 (05:16→21:49)
[2020-02-09] MEDS: NA CHLORIDE 0.9% 1,000 ML IV SCH ×3 (05:42→21:41)
[2020-02-09] MEDS ORDERED: Ringers Lactate 1,000 ML IV ONE (10:31)
[2020-02-09] MEDS ORDERED: propofoL 200 MG/20 ML VIAL IV ONE (11:05)
[2020-02-09] MEDS ORDERED: MIDAZOLAM HCL 2 MG/2 ML INJ ONE (11:05)
[2020-02-09] MEDS ORDERED: FENTANYL CITR 100 MCG/2 ML ONE ×2 (11:05→14:18)
[2020-02-09] MEDS ORDERED: ROCURONIUM 50 MG/5 ML VIAL IV ONE (11:05)
[2020-02-09] MEDS ORDERED: LIDOCAINE 1% MPF 5 ML VIAL ONE (11:05)
[2020-02-09] MEDS ORDERED: BUPIVACA 0.25%/EPI 0.0005%/PF 30 ML VIAL ONE (12:44)
[2020-02-09] MEDS ORDERED: dexAMETHasone 10 MG/ML VIAL ONE (13:34)
[2020-02-09] MEDS ORDERED: KETOROLAC 30 MG/ML INJ ONE (13:36)
[2020-02-09] MEDS ORDERED: ONDANSETRON 4 MG/2 ML VIAL ONE (14:17)
[2020-02-09] MEDS ORDERED: GLYCOPYRROLATE 0.2 MG/ML SYR ONE (14:19)
--- NOTE | 2020-02-09 14:28 | P.OP ---
Preoperative diagnosis: Acute Cholecystitis Postoperative diagnosis: Acute Cholecystitis Primary procedure: Laparoscopic Cholecystectomy Anesthesia: GETA + Local Estimated blood loss: <10cc Specimen: Gallbladder Findings: Aberrant Branch of cystic artery, inferiolateral insertion Complications: None Transferred to: Recovery Room Condition: Good
[2020-02-09] MEDS ORDERED: NEOSTIGMINE 1 MG/ML -5 ML ONE (14:34)
[2020-02-09] MEDS ORDERED: PROMETHAZINE INJ 25 MG/ML AMP ONE (14:55)
[2020-02-09] MEDS: HYDROMORPHONE HCL 1 MG/ML INJ ONE ×2 (14:55→15:08)
[2020-02-09] MEDS ORDERED: HYDROCODONE/APAP 5/325 MG TAB PO PRN (15:04)
--- NOTE | 2020-02-10 00:52 | OP ---
Date of Procedure: 02/09/2020 Surgeon: Jorje Byers MD, Brief History Of Present Illness: Patient is a 24-year-old female, who came into the hospital [facility] days ago with evidence of cholecystitis. She had significant improvement, was sent home, and retur pema with worsening abdominal pain, as such she is brought to the operating room for acute cholecystit is. Preoperative Diagnosis: Acute cholecystitis. Postoperative Diagnosis: Acute cholecystitis. Procedure Performed: Laparoscopic cholecystectomy. Anesthesia: General endotracheal plus local with 0.5% Marcaine with epinephrine. Estimated Blood Loss: Less than 10 cc. Specimens: Gallbladder. Findings: 1.Acute inflammatory changes of the gallbladder. 2.Hydropic appearance of gallbladder with pericholecystic fluid and gallbladder wall thickening. 3.Aberrant branch of the cystic artery with an inferior lateral insertion running on the anterior kelly rface of the gallbladder. Complications: None. Disposition: Transferred to recovery room in good condition. Description Of Procedure: After informed was obtained, patient was brought to the operating room, pr epped and draped in the usual sterile fashion. After adequate anesthesia was achieved, a supraumbili eun area was anesthetized with 0.25% Marcaine and sharply incised. A 5 mm trocar was introduced in t he abdomen without evidence of complication. Insufflation was obtained to 15 mmHg at this time. The re was no injury to vital structures upon entry to the abdomen. Two additional trocars were placed, 1 in the epigastrium and 1 in the right upper quadrant. These were similarly anesthetized and sharpl y incised. A 5 mm trocar was introduced in the abdomen under direct visualization without evidence o f complication. The umbilical trocar was then up-sized to a 12 mm under direct visualization without evidence of complication. Patient was positioned in the head up, right-side up position. Ratcheted grasper was used to attempt to grasp the patient's gallbladder and was unable to be grasped due to t he significant inflammatory changes and significant swelling and fluid filled distended characteristi c of the gallbladder. Therefore, a decompression needle was brought into the field and the gallbladd er was decompressed through the fundus of the gallbladder, allowing for grasping of the gallbladder. After the gallbladder was decompressed as much as possible, gallbladder was grasped, elevated toward s the patient's right shoulder after being placed in the gallbladder position that is head up, right- side up position. Ratcheted grasper was used to dissect down to the gallbladder. Two str uctures were noted entering the gallbladder. These were both identified as cystic duct and cystic ar maximiliano. These were both encircled and skeletonized allowing for visualization of the critical view of safety. At this point, double titanium clips were placed on both proximal and distal side of the gal lbladder as well as the cystic artery. However, there was an inferior branch running proximal to the clip, which was discovered later during the procedure on the inferior posterior aspect of the gallbl adder, more towards the lateral side. After the cystic duct and cystic artery were double clipped as described, Endo Benjie were used to ligate the 2 above structures. The gallbladder was then removed from the hepatic fossa. There was some bleeding from the posterior branch as described, which was s een as arterial pumping as this ran on a posterior course laterally on the posterior aspect of the ga llbladder, approximately 20% of bed of the gallbladder. This was easily controlled with the LigaSure device with good hemostasis. It was visualized, grasped, and sealed with a single with g ood hemostasis. The area was copiously irrigated multiple times and suctioned until completely clear . There was minimal blood loss from this, as pressure was held almost immediately upon encountering this structure. The gallbladder was then removed from the hepatic fossa without evidence of complica tion, placed in EndoCatch bag, removed the umbilical trocar, sent off for pathologic examination. Th e abdomen was then reinsufflated. The area was copiously irrigated multiple times until completely c lear. All clips were found to be in good anatomic position. There was no bleeding and no additional hemostatic maneuvers were required, as the gallbladder bed was well fulgurated. The area was copiou sly irrigated multiple times. Clips were found to be in good anatomic position. Abdomen was then de sufflated and suctioned out and there was no additional hemostatic maneuvers required, no bile spilla ge. The patient was then positioned in neutral position. The umbilical trocar was then removed. Th e umbilical trocar site was closed using a Rob-Deepak suture passer with 0 Vicryl in interrupted fashion with good approximation of tissues. The abdomen was completely desufflated under direct vis ualization without evidence of complication. All skin incisions were then copiously irrigated and cl osed with a 4-0 Monocryl in a running fashion. Dermabond placed over top. Patient tolerated the pro cedure well without evidence of complication, transferred in good condition. All counts were correct at the end of the case. ESVIN/CHELSIE Voice ID: [id number] Report ID: [id number]
[2020-02-10] MEDS: PIPER/TAZO/NS 3.375gm 3.375 GM/100 ML BAG IVPB SCH (05:22)
[2020-02-10] MEDS: NA CHLORIDE 0.9% 1,000 ML IV SCH (05:23)
[2020-02-10 06:05] LABS: Absolute Lymphocytes (CBC) 1.1 K/uL (0.7-4.9); Basophils % 0.1 % (0-1.3); Hematocrit 33.2 % (36.0-45.0); Lymphocytes % 12.5 % (15.3-44.8); MPV 9.1 fL (7.6-11.3); RBC Red Blood Cell Count 3.83 M/uL (3.86-4.86)
[2020-02-10 06:14] LABS: BUN Blood Urea Nitrogen 6 mg/dL (7-18); Bicarbonate 21 mmol/L (21-32); Glucose Level 83 mg/dL (74-106); Potassium 4.1 mmol/L (3.5-5.1); Sodium Level 141 mmol/L (136-145)
[2020-02-10 11:39] VITALS: O2SAT 98
[2020-02-10 12:06] VITALS: BP 145/79; TEMP 98.6
--- NOTE | 2020-02-10 20:17 | HP ---
Date of Admission: 02/09/2020 Brief History Of Present Illness: Patient is a 24-year-old female, who presents to the hosp ital with approximately 1-1/2-week history of epigastric and right upper quadrant abdominal pain. Augusto dos santos was originally admitted on 02/07/2020 and had significant improvement of her symptoms almost immedi ately. She was started on clear liquid diet and advanced to regular diet and did well with that with no pain, no recurrence of symptoms. However, she was discharged on 02/08, went home, ate, and had a recurrence of her epigastric and right upper quadrant abdominal pain. As such, she returned to the ER with the above-stated recurrence of symptoms immediately following discharge. Therefore, she is b eing admitted for surgical planning of her laparoscopic cholecystectomy, which we previously discusse d. Past Medical History: Significant for asthma as a child. Past Surgical History: She has had 2 C-sections, last was approximately a year ago. Allergies: NO KNOWN DRUG ALLERGIES. Medications: None. Social History: She denies smoking, alcohol, or recreational drug use. Physical Examination: Vital Signs: At the time of my examination, her vital signs were, a blood pressure 116/53, pulse is 73, respiratory rate 14, temperature is 97.8. General: She is awake, alert, and oriented. Psychiatric: She is appropriate conversive. HEENT: She is normocephalic. Sclerae anicteric. Mucous membranes are moist. Oropharynx is clear. Neck: Supple. No JVD. Chest: Normal expansion and excursion. Cardiovascular: Regular rate and rhythm. Pulmonary: Clear to auscultation bilaterally. Abdomen: Soft, nontender, nondistended. Negative Almendarez sign. No focal peritonitis. No tenderness at McBurney point. Her abdomen is generally obese with well-healed surgical scars. Extremities: No clubbing, cyanosis, edema. Skin: Warm and dry. Laboratory Data: Laboratory exam revealed a white blood cell count of 9.0, hemoglobin 12.3 over david tocrit of 36.6, platelet count was 332. Her sodium was 142, potassium 3.5, chloride 111, carbon diox tone 25, BUN 8, creatinine 0.6, glucose is 86, total bilirubin 0.4, direct component 0.1, AST is 12, A LT 54, alkaline phosphatase is 90. Her lipase is 60. . The official dictation of the abd ominal ultrasound is gallbladder wall is mildly thickened measuring 4 mm. Gallstones not visualized on exam. Biliary tree is normal. The mild gallbladder wall thickening may indicate cholecystitis, s hould be correlated clinically. Patient has known cholelithiasis. The stone was not visualized on t his exam, but can be present in the gallbladder neck and obscured by overlying bowel gas. Assessment And Plan: This is a 24-year-old female, who came in with failure of nonoperative manageme nt; and as such, I have recommended laparoscopic, possible open cholecystectomy. I have explained th e risks, benefits, and alternatives of the above-stated plan including, but not limited to bleeding, infection, damage to surrounding tissues, injury to bile ducts and intestines, need for further opera tion and procedures. In addition, patient will be given IV fluids, antibiotic coverage with Zosyn, a nd plan for surgery as described above. Patient agrees to proceed as indicated. ESVIN/CHELSIE Voice ID: [id number]
== END 2020-02-10 13:06 | disposition home or self-care (01) | DRG 419 ==
LOC: ER 19:52 → ERHOLD 21:34 → 2ND 22:23 → OBSVTOIN 02-09 16:40
PROVIDERS: ADMIT Surgery; ATTEND Surgery
PROC: 0FT44ZZ Resection of Gallbladder, Percutaneous Endoscopic Approach (ICD-10-PCS; principal; 2020-02-09 11:00)
DX: K80.00 Calculus of gallbladder with acute cholecystitis without obstruction (principal)
CPT/HCPCS: 36415; 76705; 80048; 80076; 83690; 85018; 85025; 88304; 96365; 99285; G0378; J1100; J1170; J2250; J2405; J2543; J2550; J2704; J2710; J3010; J7030; J7120